=== PATIENT | male | born 1955 | race Caucasian/White ===

== ENCOUNTER → 2019-01-20 13:05 | Outpatient (CLI) | payer OTHER, SELFPAY ==
--- NOTE | 2019-01-20 13:06 | DI.US.S_ITS ---
PROCEDURE: US SCROTUM INDICATIONS: SCROTAL SWELLING TECHNIQUE: Real-time scanning was performed of the scrotum and testicles, with image documentation. Color and pulse Doppler interrogation was performed of both testicles. COMPARISON: [facility], , TESTICLE IMAGING, 01/08/2013, 16:16. FINDINGS: Right: Testicle is normal in size at 5.9 x 3.8 x 3.7 cm, and homogenous in echotexture. Large right spermatocele has increased in size measuring 10.7 x 7.8 x 10.4 cm.. No hydrocele or varicoceles. Overlying scrotal skin is normal in thickness. Left: Testicle is normal in size at 5.5 x 3.3 x 3.5 cm, and homogeneous in echotexture. Epididymis is normal in overall size and morphology. Small left epididymal cyst again seen unchanged measuring 17 mm No hydrocele or varicoceles. Overlying scrotal skin is normal in thickness. Doppler: Color and pulse Doppler demonstrate normal and symmetric arterial flow in both testicles. IMPRESSION: 1. Normal testicles bilaterally. 2. Increase in size of large right spermatocele and no change in small left epididymal cyst. Dictated by: Andre Kinsey [facility] Interpreted: Xavier Orlando MD on 01/20/2019 at 15:05 Approved by: Xavier Orlando M.D. on 01/22/2019 at 17:34
== END ==
PROVIDERS: PCP Family Medicine; Visit Provider Family Medicine
DX: N50.89 Other specified disorders of the male genital organs (principal); N43.41 Spermatocele of epididymis, single; N50.3 Cyst of epididymis
CPT/HCPCS: 76870

== ENCOUNTER 2019-04-17 20:17 | Emergency (ER) | payer OTHER, SELFPAY ==
[2019-04-17 20:25] VITALS: BP 175/112; PULSE 90; RESP 16; TEMP 36.7; O2SAT 94; BMI 33.3
--- NOTE | 2019-04-17 20:26 | ED.MALEGU ---
HPI - Male Genitourinary General Chief complaint: Urogenital-Male Stated complaint: Surgical wound opened Time Seen by Provider: 04/17/19 20:20 Source: patient and EMS Mode of arrival: EMS Limitations: no limitations History of Present Illness HPI Narrative: 64-year-old male nonsmoker with recent history of urologic surgery presents by EMS for evaluation of bleeding from the surgical site. He had surgery for a large hydrocele at [facility] earlier in the week. He had been in his normal state of health and actually saw his urologist in the office yesterday. Today he felt some liquid draining in his pants and noted that his wound had dehisced and he bled a large amount of dark blood. He denies any dizziness, weakness or lightheadedness. He has no pain, fever or shaking chills. He takes no blood thinners. MD Complaint: other Onset (ago): hour(s) Duration: constant Location: right testicle Severity: moderate Relieving factors: none Exacerbating factors: none Context: recent surgery Related Data Home Medications Medication Instructions Recorded Confirmed No Known Home Medications 01/05/19 01/05/19 Allergies Allergy/AdvReac Type Severity Reaction Status Date / Time No Known Drug Allergies Allergy Verified 01/05/19 12:53 Review of Systems Constitutional Constitutional: Denies chills, Denies fatigue, Denies fever(s), Denies frequent falls, Denies lethargy and Denies weakness Eyes Eyes: Denies change in vision, Denies eye discharge, Denies irritation and Denies loss of vision ENT Ears, Nose, Mouth, and Throat: Denies change in voice, Denies dizziness, Denies neck pain, Denies sore throat and Denies throat swelling Cardiovascular Cardiovascular: Denies chest pain, Denies irregular heart rhythm, Denies lightheadedness, Denies palpitations, Denies dyspnea, Denies dyspnea on exertion and Denies orthopnea Respiratory Respiratory: Denies cough, Denies dyspnea, Denies dyspnea on exertion and Denies wheezing Gastrointestinal Gastrointestinal: Denies abdominal pain, Denies change in bowel habits, Denies diarrhea, Denies nausea and Denies vomiting Genitourinary Genitourinary: Denies hematuria, Denies flank pain, Denies urinary incontinence and Denies urinary urgency Comments: Bleeding from surgical site Musculoskeletal Musculoskeletal: Denies back pain, Denies muscle weakness, Denies neck pain, Denies numbness and Denies tingling Integumentary/Breasts Skin/Breast: Denies pruritus, Denies erythema, Denies rash and Denies wounds Neurologic Neurologic: Denies behavioral changes, Denies confusion, Denies dizziness, Denies frequent falls, Denies loss of vision, Denies numbness, Denies tingling and Denies weakness Psychiatric Psychiatric: Denies anxiety, Denies behavioral changes, Denies confusion, Denies depression, Denies homicidal ideation and Denies suicidal ideation Endocrine Endocrine: Denies fatigue, Denies flushing and Denies palpitations Hematologic/Lymphatic Hematologic/Lymphatic: Denies easy bruising Allergic/Immunologic Allergic/Immunologic: Denies urticaria, Denies throat swelling and Denies wheezing Patient History Medical History Gout (Acute) Surgical History Anesthesia (Resolved) History of right knee surgery (Resolved ~01/2009) Family History Father Hyperlipidemia Atherosclerosis Mother Diabetes mellitus Hyperlipidemia Brother COPD (chronic obstructive pulmonary disease) Brother Liver disease Social History Smoking Status: Never smoker Smoking Status: Never smoker Exam Narrative Exam Narrative: GENERAL: [64] year old patient appears stated age. Well-nourished, well-developed patient, in mild distress. HEAD: Atraumatic. Normocephalic. EYES: Pupils equal round and reactive. Extraocular motions intact. No scleral icterus. No injection or drainage. ENT: Nose without bleeding, purulent drainage. Throat without erythema, tonsillar hypertrophy or exudate. Airway patent. NECK: Trachea midline. Non tender CARDIOVASCULAR: Regular rate and rhythm without murmurs, gallops, or rubs. RESPIRATORY: Clear to auscultation. Breath sounds equal bilaterally. No wheezes, rales, or rhonchi. GASTROINTESTINAL: Abdomen soft, non-tender, nondistended. : 2cm area of wound dehiscence. Approximately 200 cc of dark blood expressed, no sign of active or arterial bleeding EXTREMITIES: No edema or joint tenderness. BACK: Nontender without deformity or crepitance. No flank tenderness. NEURO: AOx3. SKIN: No rash or erythema of visible areas Initial Vital Signs Initial Vital Signs: Vital Signs Temperature 98.1 F 04/17/19 20:25 Pulse Rate 90 04/17/19 20:25 Respiratory Rate 16 04/17/19 20:25 Blood Pressure 175/112 H 04/17/19 20:25 Pulse Oximetry 94 04/17/19 20:25 Course Orders Ordered: ED Orders 04/17/19 20:45 Basic Metabolic Panel Stat Complete Blood Count AUTO DIFF Stat Procalcitonin Stat Prothrombin Time INR Stat Consultations Consultation #1: Call to the patient's surgeon, Dr. Quintero, we discussed the case and she states given normal vital signs and lab work as well as my description of the blood this is almost surely a delayed bleed and consequence of his surgery. They will call him and see him in office on Friday Vital Signs Vital signs: Vital Signs - 8 hr 04/17/19 20:25 Temperature 98.1 F Pulse Rate 90 Respiratory Rate 16 Blood Pressure 175/112 H Pulse Oximetry 94 MDM - Male Genitourinary Lab Data Result diagrams: 04/17/19 20:45 04/17/19 20:45 Labs: Lab Results 04/17/19 04/17/19 04/17/19 Range/Units 20:45 20:45 20:45 WBC 7.7 (4.5-11.0) X10^3/uL RBC 5.08 (4.5-5.9) X10^6/uL Hgb 16.1 (13.5-17.5) g/dL Hct 47.4 (41-53) % MCV 93.2 (80-100) fL MCH 31.6 (26-34) PG MCHC 33.9 (30-36) % RDW 13.9 (11.6-14.8) % Plt Count 264 (150-400) X10^3/uL Neut % (Auto) 56.3 (50-75) % Lymph % (Auto) 32.1 (25-40) % Mason % (Auto) 8.2 (3-14) % Eos % (Auto) 2.4 (2-4) % Baso % (Auto) 1.0 (0-2) % Neut # (Auto) 4300 (0553-1774) /uL Lymph # (Auto) 2500 (7094-7150) /uL Mason # (Auto) 600 (0-900) /uL Eos # (Auto) 200 (0-450) /uL Baso # (Auto) 100 (0-100) /uL PT 12.8 H (10.1-12.7) SECONDS INR 1.1 (0.9-1.3) Sodium (137-145) mmol/L Potassium (3.4-5.1) mmol/L Chloride (98-107) mmol/L Carbon Dioxide (22-32) mmol/L BUN (9-20) mg/dL Creatinine (0.66-1.25) mg/dL Estimated GFR (>60) mL/min BUN/Creatinine Ratio (6-22) Glucose (80-110) mg/dL Calcium (8.4-10.2) mg/dL Procalcitonin < 0.05 (<0.5) ng/mL 04/17/19 Range/Units 20:45 WBC (4.5-11.0) X10^3/uL RBC (4.5-5.9) X10^6/uL Hgb (13.5-17.5) g/dL Hct (41-53) % MCV (80-100) fL MCH (26-34) PG MCHC (30-36) % RDW (11.6-14.8) % Plt Count (150-400) X10^3/uL Neut % (Auto) (50-75) % Lymph % (Auto) (25-40) % Mason % (Auto) (3-14) % Eos % (Auto) (2-4) % Baso % (Auto) (0-2) % Neut # (Auto) (8943-7992) /uL Lymph # (Auto) (6515-2634) /uL Mason # (Auto) (0-900) /uL Eos # (Auto) (0-450) /uL Baso # (Auto) (0-100) /uL PT (10.1-12.7) SECONDS INR (0.9-1.3) Sodium 141 (137-145) mmol/L Potassium 4.1 (3.4-5.1) mmol/L Chloride 106 (98-107) mmol/L Carbon Dioxide 24 (22-32) mmol/L BUN 20 (9-20) mg/dL Creatinine 1.10 (0.66-1.25) mg/dL Estimated GFR > 60.0 (>60) mL/min BUN/Creatinine Ratio 18.2 (6-22) Glucose 103 (80-110) mg/dL Calcium 9.7 (8.4-10.2) mg/dL Procalcitonin (<0.5) ng/mL Discharge Plan Departure Patient Disposition: Home Clinical Impression: Accidental laceration or bleeding during surgery, No known health problems Discharge Date/Time: 04/17/19 23:02 Activity Restrictions/Additional Instructions: *You have been diagnosed with [surgical wound bleeding] *What to do: * continue to take medications as directed *I have spoken with Dr. Quintero and her office will call you and arrange to see you on Friday. *Return to ER if you should have any new, worsening or concerning symptoms Prescriptions: No Action No Known Home Medications RF: 0 Referrals: Diana Quintero MD [Non-Staff] - Karan Smith DO [Primary Care Provider] -
[2019-04-17 20:52] LABS: Add Manual Diff / Slide Review NO; Basophils Absolute Auto 100 /uL (0-100); Eosinophils Absolute Auto 200 /uL (0-450); Eosinophils Percent Auto 2.4 % (2-4); Hematocrit 47.4 % (41-53); Hemoglobin 16.1 g/dL (13.5-17.5); Lymphocytes Absolute Auto 2500 /uL (1100-4500); Lymphocytes Percent Auto 32.1 % (25-40); Mean Corpuscular HGB Conc 33.9 % (30-36); Mean Corpuscular Hemoglobin 31.6 PG (26-34); Mean Corpuscular Volume 93.2 fL (80-100); Monocytes Absolute Auto 600 /uL (0-900); Monocytes Percent Auto 8.2 % (3-14); Neutrophils Absolute Auto 4300 /uL (1500-7000); Neutrophils Percent Auto 56.3 % (50-75); Platelet Count 264 X10^3/uL (150-400); Red Blood Cell Count 5.08 X10^6/uL (4.5-5.9); Red Cell Distribution Width 13.9 % (11.6-14.8); White Blood Cell Count 7.7 X10^3/uL (4.5-11.0)
[2019-04-17 20:57] LABS: INR 1.1 (0.9-1.3); Prothrombin Time 12.8 SECONDS (10.1-12.7)
[2019-04-17 21:01] LABS: BUN Creatinine Ratio 18.2 (6-22); Blood Urea Nitrogen 20 mg/dL (9-20); Calcium 9.7 mg/dL (8.4-10.2); Carbon Dioxide 24 mmol/L (22-32); Chloride 106 mmol/L (98-107); Estimated Glomerular Filt Rate > 60.0 mL/min (>60); Glucose 103 mg/dL (80-110); HEMOLYSIS 24 (0-50); Potassium 4.1 mmol/L (3.4-5.1); Sodium 141 mmol/L (137-145)
[2019-04-17 21:29] LABS: Procalcitonin < 0.05 ng/mL (<0.5)
[2019-04-17 22:38] VITALS: BP 167/102; PULSE 82; O2SAT 94
--- NOTE | 2019-04-17 22:58 | PC.NURSE ---
dehissed surgical scrotum. provider reports 200cc blood output upon manipulation. Patient had fluid asperated from his testicles on the fourth. Today he went to the restroom and the gauze he keeps in his jock strap pulled the surgical site open. denies pain.
== END 2019-04-17 23:02 | disposition home or self-care (01) ==
PROVIDERS: Emergency Provider Emergency Medicine; PCP Family Medicine
DX: Z98.890 Other specified postprocedural states (principal)
CPT/HCPCS: 36415; 80048; 84145; 85025; 85610; 99283; 99284

== ENCOUNTER 2021-05-22 21:12 | Inpatient (IN) | payer OTHER, MEDICARE, SELFPAY ==
[2021-05-22] VITALS (9 sets, daily range): BP systolic 120–159; BP diastolic 67–98; PULSE 52–77; RESP 19–55; TEMP 36.4; O2SAT 85–95; BMI 32.5
--- NOTE | 2021-05-22 21:17 | DI.RAD.S_ITS ---
PROCEDURE: XR ABDOMEN MIN 2V INDICATIONS: severe abdominal pain TECHNIQUE: 2 views of the abdomen were acquired. COMPARISON: None. FINDINGS: Surgical changes and devices: None. Bowel: No pneumoperitoneum. The bowel gas pattern is nonspecific with a paucity of intraluminal small bowel gas. Soft tissues: No suspicious abdominal calcifications. Bones: No suspicious bony abnormalities. IMPRESSION: 1. Nonspecific bowel gas pattern with a paucity of intraluminal small bowel gas. If clinical concern persists, further evaluation may be obtained with CT. Dictated by: Mart Pena M.D. on 05/22/2021 at 22:11 Approved by: Mart Pena M.D. on 05/22/2021 at 22:13
--- NOTE | 2021-05-22 21:22 | ED.ABDPAIN ---
HPI - Abdominal Pain General Chief Complaint: Abdominal Pain Stated Complaint: severe abd pain Time Seen by Provider: 05/22/21 21:16 History of Present Illness HPI narrative: 66-year-old male nonsmoker with history of alcohol abuse is otherwise relatively healthy and presents with his with a chief complaint of gradually worsening generalized abdominal pain over the course of the day. It has become significant and absent of any obvious provocation or palliation. He has had at least 6 episodes of emesis without any impact on his discomfort. He has had no change in diet or bowel habits. He states that he always frequently urinates but it is no different today. He has had no fever or chills. His pain is intense, 10/10. He denies dizziness, weakness or lightheadedness. He has no chest pain or shortness of breath. He denies any history of the same Related Data Home Medications Medication Instructions Recorded Confirmed No Known Home Medications 01/05/19 01/05/19 Allergies Allergy/AdvReac Type Severity Reaction Status Date / Time No Known Drug Allergies Allergy Verified 05/22/21 21:26 Review of Systems Review of Systems Narrative: GENERAL: Denies chills, fatigue, malaise, fever, sweats. HEENT: Denies sinus pain, ear pain, sore throat, difficulty swallowing, dizziness. RESPIRATORY: Denies dyspnea, cough, wheezing, hemoptysis, sputum. CARDIOVASCULAR: Denies chest pain, palpitations, orthopnea, edema, GASTROINTESTINAL: See HPI : Denies dysuria, frequency, incontinence, hematuria, urinary retention. MUSCULOSKELETAL: denies weakness, joint pain, or bony pain SKIN: See HP NEUROLOGIC: Denies weakness, headache, numbness, change in speech, confusion, seizures, incoordination. PSYCHIATRIC: No concerning psychosocial issues. 12 point review of systems is negative except for those stated above Patient History Medical History (Updated 05/23/21 @ 00:56 by Thierry Crain DO) Gout Surgical History Anesthesia History of right knee surgery (~01/2009) Family History Father Hyperlipidemia Atherosclerosis Mother Diabetes mellitus Hyperlipidemia Brother COPD (chronic obstructive pulmonary disease) Brother Liver disease Social History household members: spouse Smoking Status: Never smoker Smoking Status: Never smoker alcohol intake frequency: 0-2 drinks per day Alcohol type: wine Substance Use Type: does not use Exam Narrative Exam Narrative: GENERAL: [66] year old patient appears stated age. Well-developed patient, in obvious distress, writhing in pain, diaphoretic HEAD: Atraumatic. Normocephalic. EYES: Pupils equal round and reactive. Extraocular motions intact. No scleral icterus. No injection or drainage. ENT: Nose without bleeding, purulent drainage. Throat without erythema, tonsillar hypertrophy or exudate. Airway patent. NECK: Trachea midline. Non tender CARDIOVASCULAR: Regular rate and rhythm without murmurs, gallops, or rubs. RESPIRATORY: Clear to auscultation. Breath sounds equal bilaterally. No wheezes, rales, or rhonchi. GASTROINTESTINAL: Abdomen soft, tender throughout, particularly in the epigastrium, nondistended. EXTREMITIES: No edema or joint tenderness. BACK: Nontender without deformity or crepitance. No flank tenderness. NEURO: AOx3. SKIN: No rash or erythema of visible areas, diaphoretic Initial Vital Signs Initial Vital Signs: Vital Signs Pulse Rate 54 L 05/22/21 21:14 Respiratory Rate 24 05/22/21 21:14 Blood Pressure 120/67 05/22/21 21:14 Pulse Oximetry 95 05/22/21 21:14 Course Orders Ordered: ED Orders 05/22/21 21:17 XR abdomen min 2V Stat EKG-12 Lead Stat 05/22/21 21:20 Complete Blood Count AUTO DIFF Stat Comprehensive Metabolic Panel Stat D Dimer Stat Lactate (Lactic Acid) Stat Lipase Stat Troponin & CK Cardiac Panel Stat 05/22/21 21:30 COVID19 -Nasal swab/Pre-Proc Stat 05/22/21 21:45 Blood Culture Stat 05/22/21 22:16 CT angio chest abdomen pelvis Stat 05/23/21 00:02 Urine Culture Stat Urine Microscopic Stat Dextrose (Dextrose 50 % In Water 25 Gm/50 Ml Syringe) 25 gm IV PRN PRN PRN Reason: Hypoglycemia Enoxaparin Sodium (Enoxaparin 40 Mg/0.4 Ml Syringe) 40 mg SUBCUT DAILY CARMEN Fentanyl (Fentanyl 100 Mcg/2 Ml Inj) 50 mcg IV Q1H PRN PRN Reason: Pain, Severe (7-10) Last Admin: 05/22/21 22:24 Dose: 50 mcg Documented by: ALFREDO Hydromorphone HCl (Hydromorphone 1 Mg Inj) 1 mg IV Q3H PRN PRN Reason: Pain, Severe (7-10) Last Admin: 05/23/21 02:37 Dose: 1 mg Documented by: EBONI Sodium Chloride (Normal Saline 0.9%) 1,000 mls @ 150 mls/hr IV CONT CARMEN Last Infusion: 05/22/21 22:25 Dose: 0 mls/hr Documented by: Admin: 05/22/21 21:35 Dose: 150 mls/hr Documented by: ALFREDO Insulin Human Lispro (Insulin Lispro 100 Unit/Ml 3ml Vial) 0 unit SUBCUT ACHS [facility]; Protocol Metoclopramide HCl (Metoclopramide 10 Mg/2 Ml Inj) 10 mg IV Q6HR PRN PRN Reason: Nausea And Vomiting Naloxone HCl (Naloxone 0.4 Mg/Ml Vial) 0.2 mg IV Q2MIN PRN PRN Reason: Opiate Reversal Ondansetron HCl (Ondansetron 4 Mg/2 Ml Inj) 4 mg IV Q6HR PRN PRN Reason: Nausea And Vomiting Last Admin: 05/23/21 02:31 Dose: 4 mg Documented by: EBONI Discontinued Medications Enoxaparin Sodium (Enoxaparin 40 Mg/0.4 Ml Syringe) 40 mg SUBCUT DAILY [facility] Hydromorphone HCl (Hydromorphone 0.5 Mg Inj) 0.5 mg IV NOW ONE Stop: 05/22/21 21:18 Last Admin: 05/22/21 21:35 Dose: 0.5 mg Documented by: ALFREDO Hydromorphone HCl (Hydromorphone 0.5 Mg Inj) 0.25 mg IV NOW ONE Stop: 05/22/21 22:31 Last Admin: 05/22/21 22:30 Dose: 0.25 mg Documented by: ALFREDO Hydromorphone HCl (Hydromorphone 0.5 Mg Inj) 0.5 mg IV NOW ONE Stop: 05/23/21 00:53 Last Admin: 05/23/21 01:01 Dose: 0.5 mg Documented by: ALFREDO Hydromorphone HCl (Hydromorphone 0.5 Mg Inj) 1 mg IV Q3H PRN PRN Reason: Pain, Severe (7-10) Hydromorphone HCl (Hydromorphone 1 Mg Inj) 1 mg IV Q3H PRN PRN Reason: Pain, Severe (7-10) Sodium Chloride (Normal Saline 0.9%) 2,466 mls @ 822 mls/hr 30 ml/kg infuse over 3 hr (2466 ml) IV NOW ONE Stop: 05/23/21 01:14 Last Infusion: 05/23/21 01:17 Dose: 822 mls/hr Documented by: Admin: 05/22/21 22:25 Dose: 822 mls/hr Documented by: ALFREDO Piperacillin Sod/Tazobactam (Sod 4.5 gm/ Sodium Chloride) 100 mls @ 200 mls/hr IV NOW ONE Stop: 05/22/21 22:16 Last Infusion: 05/22/21 23:45 Dose: 0 mls/hr Documented by: Admin: 05/22/21 23:26 Dose: 200 mls/hr Documented by: ALFREDO Ondansetron HCl (Ondansetron 4 Mg/2 Ml Inj) 4 mg IV NOW ONE Stop: 05/22/21 21:18 Last Admin: 05/22/21 21:35 Dose: 4 mg Documented by: ALFREDO Vital Signs Vital signs: Vital Signs - 8 hr 05/22/21 21:14 05/22/21 21:27 05/22/21 21:28 Temperature Pulse Rate 54 L 71 Respiratory Rate 24 Blood Pressure 120/67 Pulse Oximetry 95 85 L 88 L 05/22/21 21:31 05/22/21 21:34 05/22/21 22:00 Temperature 97.6 F Pulse Rate 52 L 72 Respiratory Rate 29 H 55 H Blood Pressure 147/88 H 157/92 H Pulse Oximetry 93 05/22/21 22:30 05/22/21 23:00 05/22/21 23:30 Temperature Pulse Rate 68 67 77 Respiratory Rate 19 43 H Blood Pressure 159/98 H Pulse Oximetry 94 93 90 L 05/23/21 00:00 05/23/21 00:30 Temperature Pulse Rate 69 74 Respiratory Rate 25 H 25 H Blood Pressure Pulse Oximetry 84 L 88 L MDM - Abdominal Pain Lab Data Result diagrams: 05/22/21 21:20 05/22/21 21:20 Labs: Lab Results 05/22/21 05/22/21 05/22/21 Range/Units 21:14 21:14 21:20 WBC 11.0 (4.5-11.0) X10^3/uL RBC 4.99 (4.5-5.9) X10^6/uL Hgb 15.2 (13.5-17.5) g/dL Hct 44.9 (41-53) % MCV 89.9 (80-100) fL MCH 30.4 (26-34) PG MCHC 33.8 (30-36) % RDW 14.6 (11.6-14.8) % Plt Count 261 (150-400) X10^3/uL Neut % (Auto) 67.7 (50-75) % Lymph % (Auto) 21.4 L (25-40) % [place] % (Auto) 9.7 (3-14) % Eos % (Auto) 0.5 L (2-4) % Baso % (Auto) 0.7 (0-2) % Neut # (Auto) 7500 H (3840-0750) /uL Lymph # (Auto) 2400 (2383-1396) /uL [place] # (Auto) 1100 H (0-900) /uL Eos # (Auto) 100 (0-450) /uL Baso # (Auto) 100 (0-100) /uL D-Dimer (<230) ng/mL Sodium (137-145) mmol/L Potassium (3.4-5.1) mmol/L Chloride (98-107) mmol/L Carbon Dioxide (22-32) mmol/L BUN (9-20) mg/dL Creatinine (0.66-1.25) mg/dL Estimated GFR (>60) mL/min BUN/Creatinine Ratio (6-22) Glucose (80-110) mg/dL Hemoglobin A1c 5.7 (4.0-6.0) % Lactate (0.7-2.1) mmol/L Calcium (8.4-10.2) mg/dL Total Bilirubin (0.2-1.3) mg/dL AST (17-59) IU/L ALT (<50) IU/L Alkaline Phosphatase (38-126) U/L Total Creatine Kinase (55-170) U/L CK-MB (CK-2) (<2.37) ng/mL CK-MB (CK-2) Rel Index (1.5-5.0) % Troponin I (0.01-0.034) ng/mL Total Protein (6.3-8.2) g/dL Albumin (3.5-5.0) g/dL Globulin (1.7-4.1) g/dL Albumin/Globulin Ratio (1.0-2.8) Triglycerides 168 H (35-150) mg/dL Lipase (23-300) U/L Urine RBC (0-5/HPF) Urine WBC (0-5/HPF) Urine Bacteria (None) Ur Culture Indicated? SARS-CoV-2 (PCR) (Negative) 05/22/21 05/22/21 05/22/21 Range/Units 21:20 21:20 21:20 WBC (4.5-11.0) X10^3/uL RBC (4.5-5.9) X10^6/uL Hgb (13.5-17.5) g/dL Hct (41-53) % MCV (80-100) fL MCH (26-34) PG MCHC (30-36) % RDW (11.6-14.8) % Plt Count (150-400) X10^3/uL Neut % (Auto) (50-75) % Lymph % (Auto) (25-40) % [place] % (Auto) (3-14) % Eos % (Auto) (2-4) % Baso % (Auto) (0-2) % Neut # (Auto) (5682-7006) /uL Lymph # (Auto) (9055-9257) /uL [place] # (Auto) (0-900) /uL Eos # (Auto) (0-450) /uL Baso # (Auto) (0-100) /uL D-Dimer 301 H (<230) ng/mL Sodium 139 (137-145) mmol/L Potassium 3.4 (3.4-5.1) mmol/L Chloride 105 (98-107) mmol/L Carbon Dioxide 25 (22-32) mmol/L BUN 14 (9-20) mg/dL Creatinine 1.08 (0.66-1.25) mg/dL Estimated GFR > 60.0 (>60) mL/min BUN/Creatinine Ratio 13.0 (6-22) Glucose 200 H (80-110) mg/dL Hemoglobin A1c (4.0-6.0) % Lactate 3.3 H (0.7-2.1) mmol/L Calcium 9.3 (8.4-10.2) mg/dL Total Bilirubin 1.2 (0.2-1.3) mg/dL AST 181 H (17-59) IU/L ALT 110 H (<50) IU/L Alkaline Phosphatase 66 (38-126) U/L Total Creatine Kinase 361 H (55-170) U/L CK-MB (CK-2) 3.53 H (<2.37) ng/mL CK-MB (CK-2) Rel Index 1.0 L (1.5-5.0) % Troponin I < 0.012 (0.01-0.034) ng/mL Total Protein 7.5 (6.3-8.2) g/dL Albumin 4.3 (3.5-5.0) g/dL Globulin 3.2 (1.7-4.1) g/dL Albumin/Globulin Ratio 1.3 (1.0-2.8) Triglycerides (35-150) mg/dL Lipase 15552 H (23-300) U/L Urine RBC (0-5/HPF) Urine WBC (0-5/HPF) Urine Bacteria (None) Ur Culture Indicated? SARS-CoV-2 (PCR) (Negative) 05/22/21 05/22/21 05/22/21 Range/Units 21:30 23:35 23:35 WBC (4.5-11.0) X10^3/uL RBC (4.5-5.9) X10^6/uL Hgb (13.5-17.5) g/dL Hct (41-53) % MCV (80-100) fL MCH (26-34) PG MCHC (30-36) % RDW (11.6-14.8) % Plt Count (150-400) X10^3/uL Neut % (Auto) (50-75) % Lymph % (Auto) (25-40) % [place] % (Auto) (3-14) % Eos % (Auto) (2-4) % Baso % (Auto) (0-2) % Neut # (Auto) (9250-1407) /uL Lymph # (Auto) (5942-8077) /uL [place] # (Auto) (0-900) /uL Eos # (Auto) (0-450) /uL Baso # (Auto) (0-100) /uL D-Dimer (<230) ng/mL Sodium (137-145) mmol/L Potassium (3.4-5.1) mmol/L Chloride (98-107) mmol/L Carbon Dioxide (22-32) mmol/L BUN (9-20) mg/dL Creatinine (0.66-1.25) mg/dL Estimated GFR (>60) mL/min BUN/Creatinine Ratio (6-22) Glucose (80-110) mg/dL Hemoglobin A1c (4.0-6.0) % Lactate 3.8 H (0.7-2.1) mmol/L Calcium (8.4-10.2) mg/dL Total Bilirubin (0.2-1.3) mg/dL AST (17-59) IU/L ALT (<50) IU/L Alkaline Phosphatase (38-126) U/L Total Creatine Kinase (55-170) U/L CK-MB (CK-2) (<2.37) ng/mL CK-MB (CK-2) Rel Index (1.5-5.0) % Troponin I (0.01-0.034) ng/mL Total Protein (6.3-8.2) g/dL Albumin (3.5-5.0) g/dL Globulin (1.7-4.1) g/dL Albumin/Globulin Ratio (1.0-2.8) Triglycerides (35-150) mg/dL Lipase (23-300) U/L Urine RBC 1-5/hpf (0-5/HPF) Urine WBC None seen (0-5/HPF) Urine Bacteria None seen (None) Ur Culture Indicated? Culture not indicate SARS-CoV-2 (PCR) Negative (Negative) Point of care testing: Urine Dip Bedside Urine Glucose Negative Bedside Urine Bilirubin - Negative Bedside Urine Ketone +/- 5 Urine Specific [place] 1.010 Bedside Urine Occult Blood +++ Bedside Urine pH 6.0 Bedside Urine Protein - Negative Bedside Urine Urobilinogen - Negative Bedside Urine Nitrite - Negative Imaging Data CT scan - abdomen/pelvis: Radiologist's Impression: Chart Viewer Diagnostics Subcategory All Activity ??:?? All Time ??:?? All Subcategories Filter Laboratory Imaging Microbiology Pathology Blood Bank Tests Cardiovascular Other Specialty DATE TYPE STATUS REF RANGE/AUTHOR Hx 05/22/21 22:16 Chest/Abdomen/Pelvis CTA Signed Mart Pena 05/22/21 21:17 Abdomen X-Ray Signed Mart Pena 01/20/19 13:06 Scrotum Ultrasound Signed Xavier Orlando 04/18/17 10:36 Radiology - Historical ? Vinh Desai ED 66, M?1955 MRN#? [id number] ADM IN,?AC??214?-1? 187.96cm 115.212kg BMI: 32.6kg/m? Acc#? [id number] Full Code Special Indicators No Data to Display Home Meds Not Confirmed Prescription Monitoring Program MEDICATIONS (INSTRUCTIONS) LAST TAKEN Active ??No Known Home Medications Allergies No Known Drug Allergies Problems ? ONSET Acute pancreatitis Chest pain No known health problems 02/08/11 Vital Signs Today 01:25 BP 152/90?H Pulse 59?L Resp 17? Temp 96.4 F?L O2 Sat 92? Diagnostics Reports Vinh Desai??66??M??1955 ? Allergy/Adv: No Known Drug Allergies (More??) Close Chest/Abdomen/Pelvis CTA (Signed) Mart Pena - 05/22/21 Abdomen X-Ray (Signed) Mart Pena - 05/22/21 Scrotum Ultrasound (Signed) Xavier Orlando - 01/20/19 Radiology - Historical 04/18/17 Launch?[place] [address] CT Scan Report Signed Patient: Vinh Desai MR#: [id number] : 1955 Acct:[id number] Age/Sex: 66 / M Date of Service: 05/22/21 Loc: ED Accession Number: [id number] ?? Procedure: CT angio chest abdomen pelvis Ordering Provider: Thierry Crain D.O. PROCEDURE:? CT ANGIO CHEST ABDOMEN PELVIS ? INDICATIONS:? severe pain, out of proportion, elevated lactate, ischemic? ? TECHNIQUE:? Precontrast 5 mm thick sections acquired from the lung apices to the iliac crests.? After the administration of intravenous contrast, 2.5 mm thick sections again acquired from the lung apices to the iliac crests.? Maximum intensity projection (MIP) oblique sagittal and coronal reformats were then acquired.? For radiation dose reduction, the following was used:? automated exposure control.? ? COMPARISON:? None. ? FINDINGS:? Image quality:? Diagnostic.? ? AORTA:? Noncontrast images demonstrate no evidence of intramural hematoma.? There is aneurysmal dilatation of the aortic root which measures up to approximately 4.7 cm.? The sino-tubular junction is normal, measuring up to 3.7 cm. The aorta is otherwise normal in caliber and contour.? No intimal flaps are identified to suggest aortic dissection.? ? There is conventional branching of the aortic arch.? The visualized great vessels appear patent.? The celiac, superior mesenteric, and inferior mesenteric arteries appear widely patent.? There are single renal arteries bilaterally.? There is mild calcified plaque with associated mild narrowing at the origin of the left renal artery.? The common, external, and internal iliac arteries appear widely patent.? The visualized common femoral and proximal superficial femoral arteries also appear patent. ? CHEST:? Lungs and pleura:? There is mild dependent atelectasis bilaterally.? No pleural effusions or pneumothorax.? There is a small amount of dependent mucus within the trachea.? There is elevation of the right hemidiaphragm ? Mediastinum:? Heart size is normal.? No pericardial effusion.? No mediastinal or hilar adenopathy by size criteria.? Central pulmonary arteries are normal in size.? Esophagus is normal in caliber.? No hiatal hernias.? ? Bones and chest wall:? No axillary adenopathy by size criteria.? Thyroid gland demonstrates no discrete nodules.? No suspicious bony lesions.? No vertebral body compression fractures.? ? ? ABDOMEN:? ? Solid organs:? There are few cysts in the left hepatic lobe.? The gallbladder appears within normal limits without calcified gallstones.? Biliary system is non-dilated.? The spleen is normal in size.? No adrenal nodules.? Kidneys demonstrate no hydronephrosis. ? There is peripancreatic fat stranding and fluid predominantly along the pancreatic head consistent acute pancreatitis.? No acute peripancreatic fluid collections.? No definite evidence of necrosis.? No discrete pancreatic mass.? No pancreatic duct dilatation. ? Peritoneum and bowel:? There is mild segmental bowel wall thickening involving the 2nd and 3rd portion of the duodenum likely representing reactive changes secondary to pancreatitis.? Small and large bowel loops otherwise appear normal in caliber and wall thickness.? No pericecal inflammatory changes to suggest appendicitis.? There is colonic diverticulosis throughout the colon without acute diverticulitis. ? Nodes and vessels:? No retroperitoneal or mesenteric adenopathy by size criteria.? Inferior vena cava is normal in morphology.? ? Miscellaneous:? No ventral hernias.? ? ? PELVIS:? Genitourinary:? Bladder wall thickness is normal.? ? Miscellaneous:? No inguinal hernias or adenopathy.? No ventral hernias.? ? Bones:? No suspicious bony lesions.? No vertebral body compression fractures.? ? ? IMPRESSION:? ? 1. No evidence of aortic dissection. ? 2. No focal stenosis within the celiac, superior mesenteric, or inferior mesenteric arteries to suggest mesenteric ischemia. ? 3. Peripancreatic fat stranding and fluid consistent with acute interstitial edematous pancreatitis.? No evidence of necrosis or loculated acute peripancreatic fluid collections. ? 4. Mild aneurysmal dilatation of the aortic root. ? ? Dictated by: Mart Pena M.D. on 05/22/2021 at 23:41 ? ? Approved by: Mart Pena M.D. on 05/22/2021 at 23:49 ? [facility] Narrative Medical decision making narrative: Patient presents with a relatively sudden onset severe abdominal pain which at times seems out of proportion to his exam. Given the severity of his initial presentation he was treated as if he may be septic from perforation or other intra-abdominal infection hence the decision to use IV fluids at 30 cc/kilogram and administration of antibiotics. Given the severity of his presentation vascular abnormalities of the abdomen were considered and thankfully not seen on angiography, however is significantly elevated lipase and imaging suggest pancreatitis as etiology. There is no fluid collection or abscess nor evidence of necrotizing pancreatitis. Pain is well controlled. Patient and understand the diagnosis and agree with the plan. Discharge Plan Departure Patient Disposition: Admitted As Inpatient Clinical Impression: Acute pancreatitis Admit Date/Time: 05/23/21 00:55 Admit Provider: Beth Orlando
[2021-05-22] MEDS: ONDANSETRON 4 MG/2 ML INJ IV (21:35)
[2021-05-22] MEDS: SODIUM CHLORIDE 0.9% 1,000 ML 150 ML IV (21:35)
[2021-05-22] MEDS: HYDROMORPHONE 0.5 MG INJ IV (21:35)
[2021-05-22 21:36] LABS: Add Manual Diff / Slide Review NO; Basophils Absolute Auto 100 /uL (0-100); Basophils Percent Auto 0.7 % (0-2); Eosinophils Absolute Auto 100 /uL (0-450); Eosinophils Percent Auto 0.5 % (2-4); Hematocrit 44.9 % (41-53); Hemoglobin 15.2 g/dL (13.5-17.5); Lymphocytes Absolute Auto 2400 /uL (1100-4500); Lymphocytes Percent Auto 21.4 % (25-40); Mean Corpuscular HGB Conc 33.8 % (30-36); Mean Corpuscular Hemoglobin 30.4 PG (26-34); Mean Corpuscular Volume 89.9 fL (80-100); Monocytes Absolute Auto 1100 /uL (0-900); Monocytes Percent Auto 9.7 % (3-14); Neutrophils Absolute Auto 7500 /uL (1500-7000); Neutrophils Percent Auto 67.7 % (50-75); Platelet Count 261 X10^3/uL (150-400); Red Blood Cell Count 4.99 X10^6/uL (4.5-5.9); Red Cell Distribution Width 14.6 % (11.6-14.8)
[2021-05-22 21:45] LABS: D Dimer 301 ng/mL (<230)
[2021-05-22 21:47] LABS: Alanine Aminotransferase 110 IU/L (<50); Albumin 4.3 g/dL (3.5-5.0); Albumin Globulin Ratio 1.3 (1.0-2.8); Alkaline Phosphatase 66 U/L (38-126); Aspartate Aminotransferase 181 IU/L (17-59); Bilirubin Total 1.2 mg/dL (0.2-1.3); Blood Urea Nitrogen 14 mg/dL (9-20); Calcium 9.3 mg/dL (8.4-10.2); Carbon Dioxide 25 mmol/L (22-32); Chloride 105 mmol/L (98-107); Creatine Kinase 361 U/L (55-170); Estimated Glomerular Filt Rate > 60.0 mL/min (>60); Globulin 3.2 g/dL (1.7-4.1); Glucose 200 mg/dL (80-110); HEMOLYSIS < 15 (0-50); Lactate (Lactic Acid) 3.3 mmol/L (0.7-2.1); Potassium 3.4 mmol/L (3.4-5.1); Sodium 139 mmol/L (137-145); Total Protein 7.5 g/dL (6.3-8.2)
[2021-05-22 21:53] LABS: COVID19 -Nasal RAPID Negative (Negative)
[2021-05-22 21:58] LABS: Troponin I < 0.012 ng/mL (0.01-0.034)
[2021-05-22 22:02] LABS: Creatine Kinase MB 3.53 ng/mL (<2.37)
--- NOTE | 2021-05-22 22:16 | DI.CT.S_ITS ---
PROCEDURE: CT ANGIO CHEST ABDOMEN PELVIS INDICATIONS: severe pain, out of proportion, elevated lactate, ischemic? TECHNIQUE: Precontrast 5 mm thick sections acquired from the lung apices to the iliac crests. After the administration of intravenous contrast, 2.5 mm thick sections again acquired from the lung apices to the iliac crests. Maximum intensity projection (MIP) oblique sagittal and coronal reformats were then acquired. For radiation dose reduction, the following was used: automated exposure control. COMPARISON: None. FINDINGS: Image quality: Diagnostic. AORTA: Noncontrast images demonstrate no evidence of intramural hematoma. There is aneurysmal dilatation of the aortic root which measures up to approximately 4.7 cm. The sino-tubular junction is normal, measuring up to 3.7 cm. The aorta is otherwise normal in caliber and contour. No intimal flaps are identified to suggest aortic dissection. There is conventional branching of the aortic arch. The visualized great vessels appear patent. The celiac, superior mesenteric, and inferior mesenteric arteries appear widely patent. There are single renal arteries bilaterally. There is mild calcified plaque with associated mild narrowing at the origin of the left renal artery. The common, external, and internal iliac arteries appear widely patent. The visualized common femoral and proximal superficial femoral arteries also appear patent. CHEST: Lungs and pleura: There is mild dependent atelectasis bilaterally. No pleural effusions or pneumothorax. There is a small amount of dependent mucus within the trachea. There is elevation of the right hemidiaphragm Mediastinum: Heart size is normal. No pericardial effusion. No mediastinal or hilar adenopathy by size criteria. Central pulmonary arteries are normal in size. Esophagus is normal in caliber. No hiatal hernias. Bones and chest wall: No axillary adenopathy by size criteria. Thyroid gland demonstrates no discrete nodules. No suspicious bony lesions. No vertebral body compression fractures. ABDOMEN: Solid organs: There are few cysts in the left hepatic lobe. The gallbladder appears within normal limits without calcified gallstones. Biliary system is non-dilated. The spleen is normal in size. No adrenal nodules. Kidneys demonstrate no hydronephrosis. There is peripancreatic fat stranding and fluid predominantly along the pancreatic head consistent acute pancreatitis. No acute peripancreatic fluid collections. No definite evidence of necrosis. No discrete pancreatic mass. No pancreatic duct dilatation. Peritoneum and bowel: There is mild segmental bowel wall thickening involving the 2nd and 3rd portion of the duodenum likely representing reactive changes secondary to pancreatitis. Small and large bowel loops otherwise appear normal in caliber and wall thickness. No pericecal inflammatory changes to suggest appendicitis. There is colonic diverticulosis throughout the colon without acute diverticulitis. Nodes and vessels: No retroperitoneal or mesenteric adenopathy by size criteria. Inferior vena cava is normal in morphology. Miscellaneous: No ventral hernias. PELVIS: Genitourinary: Bladder wall thickness is normal. Miscellaneous: No inguinal hernias or adenopathy. No ventral hernias. Bones: No suspicious bony lesions. No vertebral body compression fractures. IMPRESSION: 1. No evidence of aortic dissection. 2. No focal stenosis within the celiac, superior mesenteric, or inferior mesenteric arteries to suggest mesenteric ischemia. 3. Peripancreatic fat stranding and fluid consistent with acute interstitial edematous pancreatitis. No evidence of necrosis or loculated acute peripancreatic fluid collections. 4. Mild aneurysmal dilatation of the aortic root. Dictated by: Mart Pena M.D. on 05/22/2021 at 23:41 Approved by: Mart Pena M.D. on 05/22/2021 at 23:49
[2021-05-22] MEDS: fentaNYL 100 MCG/2 ML INJ 50 MCG IV (22:24)
[2021-05-22] MEDS: SODIUM CHLORIDE 0.9% 2,466 ML 822 ML IV (22:25)
[2021-05-22] MEDS: HYDROMORPHONE 0.5 MG INJ 0.25 MG IV (22:30)
[2021-05-22 22:36] LABS: Lipase 51929 U/L (23-300)
[2021-05-22] MEDS: PIPERACILLIN/TAZO 4.5 GM in SODIUM CHLORIDE 0.9% 100 ML 200 ML IV (23:26)
[2021-05-22 23:29] LABS: Reflexed Lactate in 2 Hours Y
[2021-05-22] MEDS: KETAMINE 50 MG/5 ML *SYRINGE 11.5212 MG IV (23:35)
[2021-05-23] VITALS (11 sets, daily range): BP systolic 130–152; BP diastolic 75–90; PULSE 59–79; RESP 17–34; TEMP 35.6–36.7; O2SAT 84–97; BMI 32.5
[2021-05-23] LABS: Lactate 2HR (Lactic Acid Rflx) 3.8 mmol/L (0.7-2.1)
[2021-05-23 00:25] LABS: Bacteria Urine None Seen; RBC Urine 1-5/HPF (0-5/HPF); WBC Urine None Seen (0-5/HPF)
[2021-05-23] MEDS: HYDROMORPHONE 0.5 MG INJ IV (01:01)
[2021-05-23 02:01] LABS: Triglycerides 168 mg/dL (35-150)
[2021-05-23 02:15] LABS: Hemoglobin A1C% w Est Avg Glu 5.7 % (4.0-6.0)
[2021-05-23] MEDS: ONDANSETRON 4 MG/2 ML INJ IV (02:31)
[2021-05-23] MEDS: HYDROMORPHONE 1 MG INJ IV ×2 (02:37→06:27)
--- NOTE | 2021-05-23 02:59 | P.HP_ITS ---
History of Present Illness History of Present Illness Date Patient Seen: 05/23/21 Time Patient Seen: 02:00 Chief complaint: Severe abd pain, N/V found to have acute pancreati Narrative: Garett Desai is a 66-year-old male with no current medications who presented to the emergency department with worsening abdominal cramping and pain, bloating and vomiting. He is currently having dry heaves and was unable to tell me what color his vomit was earlier in the day. He states that he vomited about 6 times prior to coming into the emergency department and then 3 times since. He states he does drink wine about 2 glasses 3 times a week. Otherwise he denies taking any medications that might provoke the this. He denies fevers sweats or chills, shortness of breath, he has chronic frequent urination, denies diarrhea or constipation. When he received the last pain medication he said that his right hand got numb but that is now resolved. He also stated after receiving last medication he did hallucinate and that he never wanted to have a medication like that again. In the emergency department he presented with a markedly elevated lipase of of almost 52,000, CT of the abdomen and pelvis confirmed presence of acute pancreatitis with no evidence of necrosis he is afebrile, blood pressure 152/90, heart rate 59, oxygen saturation 92% on 4 L, he weighs 115 kilos with a BMI of 32.5. His CBC is unremarkable, did have a mildly elevated D-dimer, glucose 200, A1c is 5.7 indicating probable transient elevated glucose due to pancreatic insufficiency, his lactate is 3.8, AST 181, ALT 110, total creatinine kinase is 361, CK-MB is 3.53, troponin is negative, his triglycerides are 168, UA is negative for UTI and COVID-19 PCR is negative. Patient is admitted for pain control and further workup of acute pancreatitis. Patient History Medical History (Updated 05/23/21 @ 03:06 by CATHERINE Cabrera) Gout Surgical History (Updated 05/23/21 @ 03:08 by CATHERINE Cabrera) Anesthesia History of hydrocelectomy History of right knee surgery (~01/2009) Family & Social History Family History Father Hyperlipidemia Atherosclerosis Mother Diabetes mellitus Hyperlipidemia Brother COPD (chronic obstructive pulmonary disease) Brother Liver disease Social History: household members spouse Prior Living Arrangements House Safety & Behavioral: Feels Safe in Current Yes Environment Been Physically Hurt or No Threatened By a Person Suicidal Ideation Description None Suicide Plan Description No Plan Tobacco & Substance use: Smoking Status Never smoker alcohol intake frequency 0-2 drinks per day Substance Use Type does not use Meds Home Medications and Allergies Home Medications Medication Instructions Recorded Confirmed Type No Known Home Medications 01/05/19 01/05/19 History Allergies Allergy/AdvReac Type Severity Reaction Status Date / Time No Known Drug Allergies Allergy Verified 05/22/21 21:26 Review of Systems Review of Systems ROS: Yes All systems reviewed with the patient and are negative except as oth erwise documented Exam Vital Signs (past 8 hours): - 05/22/21 21:14 05/22/21 21:27 05/22/21 21:28 Temperature Pulse Rate 54 L 71 Respiratory Rate 24 Blood Pressure 120/67 Pulse Oximetry 95 85 L 88 L 05/22/21 21:31 05/22/21 21:34 05/22/21 22:00 Temperature 97.6 F Pulse Rate 52 L 72 Respiratory Rate 29 H 55 H Blood Pressure 147/88 H 157/92 H Pulse Oximetry 93 05/22/21 22:30 05/22/21 23:00 05/22/21 23:30 Temperature Pulse Rate 68 67 77 Respiratory Rate 19 43 H Blood Pressure 159/98 H Pulse Oximetry 94 93 90 L 05/23/21 00:00 05/23/21 00:30 05/23/21 01:00 Temperature Pulse Rate 69 74 72 Respiratory Rate 25 H 25 H 34 H Blood Pressure Pulse Oximetry 84 L 88 L 89 L 05/23/21 01:25 Temperature 96.4 F L Pulse Rate 59 L Respiratory Rate 17 Blood Pressure 152/90 H Pulse Oximetry 92 Oxygen Delivery Method Room Air Oxygen Flow Rate 4 Narrative Exam Narrative: Gen: Alert, oriented, obese 66 y.o. male, appears uncomfortable HEENT: normocephalic, atraumatic, conjunctiva clear, sclera non-icteric, oral mucosa pink and moist Neck: supple, full ROM, no JVD, trachea is midline Resp: Lungs CTA, non-labored breathing CV: RRR, no murmur or rubs Abd: Distended, soft, diffusely tender, normoactive BTs Skin: no lesions or rashes, dry and intact Neuro: Alert and oriented X 4 w/no focal deficits. Speech clear and coherent. Extremities: moves all 4 extremities, is ambulatory, negative Estefany?s sign Psyche: normal mood and affect. Objective Labs Result Diagrams: 05/22/21 21:20 05/22/21 21:20 Labs: Laboratory Results - last 24 hr 05/22/21 05/22/21 05/22/21 21:14 21:14 21:20 WBC 11.0 RBC 4.99 Hgb 15.2 Hct 44.9 MCV 89.9 MCH 30.4 MCHC 33.8 RDW 14.6 Plt Count 261 Neut % (Auto) 67.7 Lymph % (Auto) 21.4 L [place] % (Auto) 9.7 Eos % (Auto) 0.5 L Baso % (Auto) 0.7 Neut # (Auto) 7500 H Lymph # (Auto) 2400 [place] # (Auto) 1100 H Eos # (Auto) 100 Baso # (Auto) 100 D-Dimer Sodium Potassium Chloride Carbon Dioxide BUN Creatinine Estimated GFR BUN/Creatinine Ratio Glucose Hemoglobin A1c 5.7 Lactate Calcium Total Bilirubin AST ALT Alkaline Phosphatase Total Creatine Kinase CK-MB (CK-2) CK-MB (CK-2) Rel Index Troponin I Total Protein Albumin Globulin Albumin/Globulin Ratio Triglycerides 168 H Lipase Urine RBC Urine WBC Urine Bacteria Ur Culture Indicated? SARS-CoV-2 (PCR) 05/22/21 05/22/21 05/22/21 21:20 21:20 21:20 WBC RBC Hgb Hct MCV MCH MCHC RDW Plt Count Neut % (Auto) Lymph % (Auto) [place] % (Auto) Eos % (Auto) Baso % (Auto) Neut # (Auto) Lymph # (Auto) [place] # (Auto) Eos # (Auto) Baso # (Auto) D-Dimer 301 H Sodium 139 Potassium 3.4 Chloride 105 Carbon Dioxide 25 BUN 14 Creatinine 1.08 Estimated GFR > 60.0 BUN/Creatinine Ratio 13.0 Glucose 200 H Hemoglobin A1c Lactate 3.3 H Calcium 9.3 Total Bilirubin 1.2 AST 181 H ALT 110 H Alkaline Phosphatase 66 Total Creatine Kinase 361 H CK-MB (CK-2) 3.53 H CK-MB (CK-2) Rel Index 1.0 L Troponin I < 0.012 Total Protein 7.5 Albumin 4.3 Globulin 3.2 Albumin/Globulin Ratio 1.3 Triglycerides Lipase 32233 H Urine RBC Urine WBC Urine Bacteria Ur Culture Indicated? SARS-CoV-2 (PCR) 05/22/21 05/22/21 05/22/21 21:30 23:35 23:35 WBC RBC Hgb Hct MCV MCH MCHC RDW Plt Count Neut % (Auto) Lymph % (Auto) [place] % (Auto) Eos % (Auto) Baso % (Auto) Neut # (Auto) Lymph # (Auto) [place] # (Auto) Eos # (Auto) Baso # (Auto) D-Dimer Sodium Potassium Chloride Carbon Dioxide BUN Creatinine Estimated GFR BUN/Creatinine Ratio Glucose Hemoglobin A1c Lactate 3.8 H Calcium Total Bilirubin AST ALT Alkaline Phosphatase Total Creatine Kinase CK-MB (CK-2) CK-MB (CK-2) Rel Index Troponin I Total Protein Albumin Globulin Albumin/Globulin Ratio Triglycerides Lipase Urine RBC 1-5/hpf Urine WBC None seen Urine Bacteria None seen Ur Culture Indicated? Culture not indicate SARS-CoV-2 (PCR) Negative Assessment & Plan Assessment & Plan narrative: Vinh Desai is a 66-year-old male being admitted for further workup and management of an acute pancreatitis he is experienced for the 1st time. 1. Pancreatitis, acute, present on admission * Pain control was difficult in the emergency department, he was given IV Dilaudid then IV fentanyl and finally IV ketamine with poor effect * He will receive IV Dilaudid q.3 hours as needed * Normal saline at 175 mL/hour * NPO for now advance to clears in the morning as tolerated * If no improvement patient may require surgical consult and reimaging 2. Elevated liver enzymes, acute, present on admission * In April of 2017 he had normal liver enzymes and has not had a draw since then and today AST/ALT are 181 and 110 respectively * Have ordered an acute hepatitis panel however lab was unable to get very much blood out of him and an attempt will be made during day shift to do a redraw as it requires a larger volume of blood 3. Chronic alcohol consumption * Patient has been counseled about the need to likely quit alcohol altogether as continued consumption is likely to cause new pancreatitis exacerbations that will end him in the hospital VTE Prophylaxis: Wells risk score 0 Enoxaparin 40 mg subQ once daily Bilateral SCDs Patient is admitted to the inpatient service due to the severity of disease, risks of further disease progression and this stay is expected to exceed 2 mi dnights. FEN: IV fluids: NS at 175 ml/hour, diet: NPO, labs: CBC, C/BMP, liver enzymes, Mag, PT/INR Consultants None Dispo: Likely discharge to home Code status: Full Code as discussed with the patient who identifies spouse, Lashay as his surrogate and POA. [X] I have utilized all available immediate resources to obtain, update, or review of the patient's current medications COVID-19 COVID-19 status: Negative Result date/Date tested (Pos, Neg/Pending): 05/23/21 Time Spent With Patient Critical Care time: I spent a total of [] minutes of critical care time on this patient's care today; this time is exclusive of procedural time. Quality VTE Deep Vein Thrombosis/Pulmonary Embolism Present on Admission: No MIPS - Admit I confirm the patient?s Advance Care Plan is present, Code status is documented, Surrogate decision maker is in patient?s record [If Yes, STOP here]: Yes MIPS - DC The patient has current or prior documentation of left ventricular ejection fraction (LVEF) less than 40%, or moderate or severely depressed left ventricular systolic function.: No
[2021-05-23 03:29] LABS: Add Manual Diff / Slide Review NO; Basophils Absolute Auto 0 /uL (0-100); Eosinophils Absolute Auto 0 /uL (0-450); Hematocrit 44.2 % (41-53); Hemoglobin 14.8 g/dL (13.5-17.5); Lymphocytes Absolute Auto 400 /uL (1100-4500); Mean Corpuscular HGB Conc 33.6 % (30-36); Mean Corpuscular Hemoglobin 30.2 PG (26-34); Monocytes Absolute Auto 1000 /uL (0-900); Monocytes Percent Auto 5.4 % (3-14); Neutrophils Absolute Auto 16700 /uL (1500-7000); Neutrophils Percent Auto 92.6 % (50-75); Platelet Count 222 X10^3/uL (150-400); Red Blood Cell Count 4.91 X10^6/uL (4.5-5.9); Red Cell Distribution Width 14.9 % (11.6-14.8); White Blood Cell Count 18.1 X10^3/uL (4.5-11.0)
[2021-05-23 03:33] LABS: Alanine Aminotransferase 95 IU/L (<50); Albumin 4.2 g/dL (3.5-5.0); Albumin Globulin Ratio 1.4 (1.0-2.8); Alkaline Phosphatase 56 U/L (38-126); Aspartate Aminotransferase 126 IU/L (17-59); Bilirubin Total 0.6 mg/dL (0.2-1.3); Bilirubin Unconjugated 0.6 mg/dL (0.0-1.1); Blood Urea Nitrogen 13 mg/dL (9-20); Calcium 8.6 mg/dL (8.4-10.2); Carbon Dioxide 28 mmol/L (22-32); Chloride 106 mmol/L (98-107); Estimated Glomerular Filt Rate > 60.0 mL/min (>60); Glucose 149 mg/dL (80-110); HEMOLYSIS < 15 (0-50); Sodium 142 mmol/L (137-145); Total Protein 7.2 g/dL (6.3-8.2)
[2021-05-23 03:46] LABS: Lactate (Lactic Acid) 4.4 mmol/L (0.7-2.1)
[2021-05-23] MEDS: PIPERACILLIN/TAZO 3.375 GM in SODIUM CHLORIDE 0.9% 100 ML 25 ML IV ×3 (04:27→19:50)
[2021-05-23 05:15] LABS: Reflexed Lactate in 2 Hours Y
[2021-05-23 05:49] LABS: Lactate 2HR (Lactic Acid Rflx) 2.5 mmol/L (0.7-2.1)
--- NOTE | 2021-05-23 07:13 | DI.US.S_ITS ---
PROCEDURE: US ABDOMEN LIMITED INDICATIONS: PANCREATITIS TECHNIQUE: Real-time scanning was performed of the abdominal and retroperitoneal organs, with image documentation. COMPARISON: [facility], CT, CT ANGIO CHEST ABDOMEN PELVIS, 05/22/2021, 22:20. FINDINGS: Liver: Visualized portion of liver shows normal size and echotexture. CT finding of possible hepatic cysts are not visualized on this study. Gallbladder: There is no gallstone. No gallbladder wall thickening or pericholecystic fluid. No sonographic Callaway sign. Biliary ducts: Intrahepatic bile ducts are non-dilated. Extrahepatic bile duct caliber measures 5.4 mm. Normal is 6-7 mm or less in diameter, or 10 mm or less post-cholecystectomy. Pancreas: Pancreas is not visualized due to overlying bowel gas. IMPRESSION: 1. Normal appearing gallbladder. No biliary ductal dilatation. 2. Visualized portion of liver shows no gross abnormality although evaluation of left hepatic lobe is limited due to overlying bowel gas. 3. Pancreas is not visualized due to overlying bowel gas. Dictated by: Mendel Joshi M.D. on 05/23/2021 at 8:29 Approved by: Mendel Joshi M.D. on 05/23/2021 at 8:31
[2021-05-23] MEDS: ENOXAPARIN 40 MG/0.4 ML SYRINGE SUBCUT (08:39)
[2021-05-23] MEDS: SODIUM CHLORIDE 0.9% 1,000 ML 150 ML IV (08:39)
--- NOTE | 2021-05-23 10:22 | CM.DANOTE ---
DCP: Case received, EMR reviewed and met with patient. Introduced self and role. Was able to obtain information regarding patient's baseline activity level prior to hospitalization. DCP assessment completed with information currently available. Patient is a 66 year old male who admitted early this morning to the care of the hospitalist team. PCP: Dr. Smith. Payer: confirmed: Alba Tomlinson. Patient came to the hospital via private vehicle secondary to having severe abdominal pain, resulting in vomiting several times. Patient was noted to have increased lipase, and holds current diagnosis of Acute Pancreatitis. Patient does drink alcohol, about 2 glasses of wine 3 times a week. Met with patient in his room. He was laying in bed, alert and oriented. He resides here in [place] with his spouse, Lashay. He is independent at his baseline. He confirmed that he sees Dr. Smith for primary care, stated, he had only seen him once before the pandemic hit, and hasn't been to the doctors since then. P: DCP to continue to follow. Discussed patient in team rounds, and hospitalist anticipates that patient may be here for a few days before going home. Mariam Hernandez RN/Alternative Energy Technician Discharge Planning/Care Management Advanced directive, confirm from FAMILY Start: 05/23/21 01:45 Freq: Q24H Status: Complete Protocol: Document 05/23/21 01:45 AGW (Rec: 05/23/21 03:27 AGW [id number]) Advance Directive, confirm on record Time 02:00 Person contacted patient Copy received No Advanced directive available on record No CM Discharge Assessment Start: 05/23/21 10:20 Freq: Status: Active Protocol: Document 05/23/21 10:20 (Rec: 05/23/21 10:21 [id number]) Discharge Planning Assessment Assigned Seat Cover Maker Mariam Hernandez RN/Alternative Energy Technician Advance Directives? No Advance Directives on File No History Provided By Patient,Medical Record Prior Living Arrangements House Household Members spouse Type of transporation used prior to Drives own vehicle admit Independent with ADL's Yes Is patient alert and oriented? Yes Barriers to Discharge No Discharge Plan Home Transportation Arrangement Spouse Referrals Initiated None needed Whiteboard Updated in Patient Room with Yes name and ext. # of Seat Cover Maker Review Status In Process Next Review Type Continued Stay Review
[2021-05-23 12:03] LABS: Enterococcus species Not Detected (Not Detect); Listeria monocytogenes Not Detected (Not Detect); Staphylococcus species Not Detected (Not Detect)
[2021-05-23 12:04] LABS: Acinetobacter baumannii Not Detected (Not Detect); Candida albicans Not Detected (Not Detect); Candida glabrata Not Detected (Not Detect); Candida krusei Not Detected (Not Detect); Candida parapsilosis Not Detected (Not Detect); Candida tropicalis Not Detected (Not Detect); E. coli Not Detected (Not Detect); Enterobacter cloacae complex Not Detected (Not Detect); Enterobacteriaceae species Detected (Not Detect); Haemophilus influenzae Not Detected (Not Detect); KPC (carbapenem-resist gene) Not Detected (Not Detect); Neisseria meningitidis Not Detected (Not Detect); Proteus species Not Detected (Not Detect); Pseudomonas aeruginosa Not Detected (Not Detect); Serratia marcescens Not Detected (Not Detect); Streptococcus agalactiae (Gr B Not Detected (Not Detect); Streptococcus pneumonia Not Detected (Not Detect); Streptococcus pyogenes (Gr A) Not Detected (Not Detect); Streptococcus species Not Detected (Not Detect)
[2021-05-23] MEDS: ACETAMINOPHEN 325 MG TABLET 650 MG PO (16:33)
[2021-05-23] MEDS: SODIUM CHLORIDE 0.9% 1,000 ML 75 ML IV (16:33)
[2021-05-24 00:38] LABS: HBsAg Screen Negative (Negative); Hepatitis A Antibody IgM Negative (Negative); Hepatitis B Core Antibody IgM Negative (Negative); Hepatitis C Antibody <0.1 s/co ratio (0.0-0.9)
[2021-05-24] MEDS: HYDROMORPHONE 1 MG INJ IV (01:14)
[2021-05-24] MEDS: PIPERACILLIN/TAZO 3.375 GM in SODIUM CHLORIDE 0.9% 100 ML 25 ML IV ×3 (03:16→20:26)
[2021-05-24] MEDS: SODIUM CHLORIDE 0.9% 1,000 ML 75 ML IV ×2 (05:18→18:51)
[2021-05-24 06:16] LABS: Add Manual Diff / Slide Review NO; Basophils Absolute Auto 0 /uL (0-100); Basophils Percent Auto 0.3 % (0-2); Eosinophils Absolute Auto 100 /uL (0-450); Eosinophils Percent Auto 0.5 % (2-4); Hematocrit 43.3 % (41-53); Hemoglobin 14.3 g/dL (13.5-17.5); Lymphocytes Absolute Auto 800 /uL (1100-4500); Lymphocytes Percent Auto 6.7 % (25-40); Mean Corpuscular Hemoglobin 30.3 PG (26-34); Mean Corpuscular Volume 91.7 fL (80-100); Monocytes Absolute Auto 800 /uL (0-900); Monocytes Percent Auto 6.7 % (3-14); Neutrophils Absolute Auto 10900 /uL (1500-7000); Neutrophils Percent Auto 85.8 % (50-75); Platelet Count 176 X10^3/uL (150-400); Red Blood Cell Count 4.72 X10^6/uL (4.5-5.9); Red Cell Distribution Width 15.2 % (11.6-14.8); White Blood Cell Count 12.7 X10^3/uL (4.5-11.0)
[2021-05-24 06:30] VITALS: BP 154/96; PULSE 76; RESP 17; TEMP 37; O2SAT 93
[2021-05-24 06:31] LABS: Alanine Aminotransferase 64 IU/L (<50); Albumin 3.8 g/dL (3.5-5.0); Albumin Globulin Ratio 1.3 (1.0-2.8); Alkaline Phosphatase 46 U/L (38-126); Aspartate Aminotransferase 41 IU/L (17-59); BUN Creatinine Ratio 12.8 (6-22); Bilirubin Total 0.9 mg/dL (0.2-1.3); Bilirubin Unconjugated 0.9 mg/dL (0.0-1.1); Blood Urea Nitrogen 11 mg/dL (9-20); Calcium 8.2 mg/dL (8.4-10.2); Carbon Dioxide 29 mmol/L (22-32); Chloride 105 mmol/L (98-107); Estimated Glomerular Filt Rate > 60.0 mL/min (>60); Glucose 115 mg/dL (80-110); HEMOLYSIS < 15 (0-50); Potassium 3.9 mmol/L (3.4-5.1); Sodium 139 mmol/L (137-145); Total Protein 6.8 g/dL (6.3-8.2)
[2021-05-24] MEDS: ACETAMINOPHEN 325 MG TABLET 650 MG PO ×2 (07:52→15:30)
[2021-05-24] MEDS: ENOXAPARIN 40 MG/0.4 ML SYRINGE SUBCUT (07:53)
[2021-05-24 09:05] VITALS: O2SAT 93
[2021-05-24 10:23] VITALS: BP 164/99; PULSE 77; RESP 20; TEMP 37.3; O2SAT 91
--- NOTE | 2021-05-24 13:18 | P.PN_ITS ---
Subjective Subjective Date Patient Seen: 05/24/21 Time Patient Seen: 13:18 Interval history: This is a 66 year old male admitted with acute pancreatitis. He had a bit of pain this morning but was tolerating clears. He was not quite ready for a full diet and not feeling hungry but was agreeable to advanced to fulls. Exam Vital Signs (past 8 hours): - 05/24/21 06:30 05/24/21 09:05 05/24/21 10:23 Temperature 98.6 F 99.2 F Pulse Rate 76 77 Respiratory Rate 17 20 Blood Pressure 154/96 H 164/99 H Pulse Oximetry 93 93 91 Oxygen Delivery Method Nasal Cannula Oxygen Flow Rate 4 Narrative Exam Narrative: Gen: Alert, oriented, obese 66 y.o. male, appears uncomfortable HEENT: normocephalic, atraumatic, conjunctiva clear, sclera non-icteric, oral mucosa pink and moist Neck: supple, full ROM, no JVD, trachea is midline Resp: Lungs CTA, non-labored breathing CV: RRR, no murmur or rubs Abd:?minimal distension, soft, minimally tender epigastrium. Skin: no lesions or rashes, dry and intact Neuro: Alert and oriented X 4 w/no focal deficits. Speech clear and coherent. Extremities: no edema or joint effusions. Psyche: normal mood and affect. Objective Labs Result Diagrams: 05/24/21 05:58 05/24/21 05:58 Labs: Laboratory Results - last 24 hr 05/23/21 05/24/21 05/24/21 08:45 05:58 05:58 WBC 12.7 H RBC 4.72 Hgb 14.3 Hct 43.3 MCV 91.7 MCH 30.3 MCHC 33.0 RDW 15.2 H Plt Count 176 Neut % (Auto) 85.8 H Lymph % (Auto) 6.7 L [place] % (Auto) 6.7 Eos % (Auto) 0.5 L Baso % (Auto) 0.3 Neut # (Auto) 96866 H Lymph # (Auto) 800 L [place] # (Auto) 800 Eos # (Auto) 100 Baso # (Auto) 0 Sodium 139 Potassium 3.9 Chloride 105 Carbon Dioxide 29 BUN 11 Creatinine 0.86 Estimated GFR > 60.0 BUN/Creatinine Ratio 12.8 Glucose 115 H Calcium 8.2 L Total Bilirubin 0.9 Conjugated Bilirubin 0.0 Unconjugated Bilirubin 0.9 AST 41 ALT 64 H Alkaline Phosphatase 46 Total Protein 6.8 Albumin 3.8 Globulin 3.0 Albumin/Globulin Ratio 1.3 Hepatitis A IgM Ab Negative Hep Bs Antigen Negative Hep B Core IgM Ab Negative Hepatitis C Antibody <0.1 Hep C Ab Signal/Cutoff Comment [facility] Medical History (Updated 05/23/21 @ 03:06 by CATHERINE Cabrera) Gout Surgical History (Updated 05/23/21 @ 03:08 by CATHERINE Cabrera) Anesthesia History of hydrocelectomy History of right knee surgery (~01/2009) Family History Father Hyperlipidemia Atherosclerosis Mother Diabetes mellitus Hyperlipidemia Brother COPD (chronic obstructive pulmonary disease) Brother Liver disease Social History household members: spouse Smoking Status: Never smoker Assessment & Plan Assessment & Plan narrative: Vinh Desai is a 66-year-old male being admitted not with acute pancreatitis and Klebsiella pneumonia bacteremia. 1. Pancreatitis, acute, present on admission - advanced to FLD today. Lipase was >50,000 but now minimal pain. - advance diet as tolerated and continue pain control. - only source appears to be alcohol at this time. He states he only drinks wine on weekends. 2. Elevated liver enzymes, acute, present on admission - Now improving. Unclear etiology. RUQ US negative. 3. Chronic alcohol consumption - advised on cessation. He is agreeable to alcohol cessation. 4. Klebsiella pneumoniae bacteremia - continue zosyn pending sensitivities. Source could be from pneumonia or pancreas. Would recommend 10-14 days of total therapy, can narrow to oral after sensitivities return and if he is tolerating a diet at that time. 5. Elevated BP - likely due to pain, continue to monitor and may need to start antihypertensive. Consultants? None Dispo: Likely discharge to home, timing could be as soon as tomorrow. Code status: Full Code as discussed with the patient who identifies spouse, Lashay as his surrogate and POA. Time Spent With Patient Critical Care time: I spent a total of [] minutes of critical care time on this patient's care today; this time is exclusive of procedural time. Quality VTE Deep Vein Thrombosis/Pulmonary Embolism Present on Admission: No
[2021-05-24 18:00] VITALS: BP 158/94; PULSE 83; RESP 16; TEMP 36.9; O2SAT 94
[2021-05-24 20:19] VITALS: PULSE 77; RESP 16; O2SAT 92
[2021-05-24] MEDS: SODIUM CHLORIDE 0.9% FLUSH 10 ML IV (20:26)
[2021-05-24 20:45] VITALS: BP 162/100; PULSE 77; RESP 16; TEMP 36.9; O2SAT 92
[2021-05-24] MEDS: HYDROMORPHONE 2 MG TABLET PO (21:25)
[2021-05-25] VITALS (8 sets, daily range): BP systolic 153–168; BP diastolic 95–107; PULSE 73–77; RESP 16–18; TEMP 36.6–38.3; O2SAT 90–97
[2021-05-25] MEDS: ACETAMINOPHEN 325 MG TABLET 650 MG PO ×3 (00:46→23:42)
[2021-05-25] MEDS: PIPERACILLIN/TAZO 3.375 GM in SODIUM CHLORIDE 0.9% 100 ML 25 ML IV (04:34)
[2021-05-25] MEDS: HYDROMORPHONE 1 MG INJ IV ×3 (04:39→22:25)
[2021-05-25 06:32] LABS: Add Manual Diff / Slide Review NO; Basophils Absolute Auto 100 /uL (0-100); Basophils Percent Auto 0.7 % (0-2); Eosinophils Absolute Auto 200 /uL (0-450); Eosinophils Percent Auto 1.5 % (2-4); Hematocrit 40.7 % (41-53); Hemoglobin 13.7 g/dL (13.5-17.5); Lymphocytes Absolute Auto 1100 /uL (1100-4500); Lymphocytes Percent Auto 9.2 % (25-40); Mean Corpuscular HGB Conc 33.7 % (30-36); Mean Corpuscular Hemoglobin 30.5 PG (26-34); Mean Corpuscular Volume 90.4 fL (80-100); Monocytes Absolute Auto 1200 /uL (0-900); Monocytes Percent Auto 10.5 % (3-14); Neutrophils Absolute Auto 9300 /uL (1500-7000); Neutrophils Percent Auto 78.1 % (50-75); Platelet Count 196 X10^3/uL (150-400); Red Blood Cell Count 4.51 X10^6/uL (4.5-5.9); Red Cell Distribution Width 14.6 % (11.6-14.8); White Blood Cell Count 11.8 X10^3/uL (4.5-11.0)
[2021-05-25 06:37] LABS: Alanine Aminotransferase 46 IU/L (<50); Albumin 3.7 g/dL (3.5-5.0); Albumin Globulin Ratio 1.2 (1.0-2.8); Alkaline Phosphatase 52 U/L (38-126); Aspartate Aminotransferase 28 IU/L (17-59); BUN Creatinine Ratio 13.5 (6-22); Bilirubin Total 0.8 mg/dL (0.2-1.3); Bilirubin Unconjugated 0.8 mg/dL (0.0-1.1); Blood Urea Nitrogen 10 mg/dL (9-20); Calcium 8.2 mg/dL (8.4-10.2); Carbon Dioxide 29 mmol/L (22-32); Chloride 106 mmol/L (98-107); Estimated Glomerular Filt Rate > 60.0 mL/min (>60); Glucose 110 mg/dL (80-110); HEMOLYSIS < 15 (0-50); Potassium 3.6 mmol/L (3.4-5.1); Sodium 137 mmol/L (137-145); Total Protein 6.7 g/dL (6.3-8.2)
[2021-05-25] MEDS: ENOXAPARIN 40 MG/0.4 ML SYRINGE SUBCUT (09:32)
[2021-05-25] MEDS: AMOXICILLIN/CLAV 875/125 MG 1 TAB PO ×2 (09:32→20:46)
[2021-05-25] MEDS: SODIUM CHLORIDE 0.9% FLUSH 10 ML IV ×2 (09:33→20:47)
[2021-05-25] MEDS: SODIUM CHLORIDE 0.9% 1,000 ML 75 ML IV (09:41)
--- NOTE | 2021-05-25 10:33 | CM.DPC ---
DCP Cont: Per MD, was able to transition pt to oral meds today and will advance pt's diet from full liquids and pending his pain and tolerating advancing diet, likely can d/c home this afternoon vs tomorrow and no identified barriers to discharge. Plan: SW to follow closely for pt progress today to determine home on orals Rx today vs tomorrow pending diet. No SW needs at this time, please refer if indicated. AVE Fisher
--- NOTE | 2021-05-25 16:57 | PM.PN.1 ---
Subjective Subjective Date Patient Seen: 05/25/21 Time Patient Seen: 16:58 Interval history: This is a 66 year old male admitted with acute pancreatitis.?He was advanced to low fat diet for lunch but complained of bloating and gas, mild abdominal pain. No fevers, chills, does report lingering cough for a while before admission. Exam Vital Signs (past 8 hours): - 05/25/21 09:14 05/25/21 12:00 Temperature 97.9 F 98.5 F Pulse Rate 74 73 Respiratory Rate 18 17 Blood Pressure 153/102 H 160/102 H Pulse Oximetry 97 95 Oxygen Delivery Method Nasal Cannula Oxygen Flow Rate 0 Narrative Exam Narrative: Gen: Alert, oriented, obese 66 y.o. male, appears uncomfortable HEENT: normocephalic, atraumatic, conjunctiva clear, sclera non-icteric, oral mucosa pink and moist Neck: supple, full ROM, no JVD, trachea is midline Resp: Lungs CTA, non-labored breathing CV: RRR, no murmur or rubs Abd:?minimal distension, soft, non-tender today. Skin: no lesions or rashes, dry and intact Neuro: Alert and oriented X 4 w/no focal deficits. Speech clear and coherent. Extremities: no edema or joint effusions. Psyche: normal mood and affect. Objective Labs Result Diagrams: 05/25/21 05:58 05/25/21 05:58 Labs: Laboratory Results - last 24 hr 05/25/21 05/25/21 05:58 05:58 WBC 11.8 H RBC 4.51 Hgb 13.7 Hct 40.7 L MCV 90.4 MCH 30.5 MCHC 33.7 RDW 14.6 Plt Count 196 Neut % (Auto) 78.1 H Lymph % (Auto) 9.2 L [place] % (Auto) 10.5 Eos % (Auto) 1.5 L Baso % (Auto) 0.7 Neut # (Auto) 9300 H Lymph # (Auto) 1100 [place] # (Auto) 1200 H Eos # (Auto) 200 Baso # (Auto) 100 Sodium 137 Potassium 3.6 Chloride 106 Carbon Dioxide 29 BUN 10 Creatinine 0.74 Estimated GFR > 60.0 BUN/Creatinine Ratio 13.5 Glucose 110 Calcium 8.2 L Total Bilirubin 0.8 Conjugated Bilirubin 0.0 Unconjugated Bilirubin 0.8 AST 28 ALT 46 Alkaline Phosphatase 52 Total Protein 6.7 Albumin 3.7 Globulin 3.0 Albumin/Globulin Ratio 1.2 [facility] Medical History (Updated 05/23/21 @ 03:06 by CATHERINE Cabrera) Gout Surgical History (Updated 05/23/21 @ 03:08 by CATHERINE Cabrera) Anesthesia History of hydrocelectomy History of right knee surgery (~01/2009) Family History Father Hyperlipidemia Atherosclerosis Mother Diabetes mellitus Hyperlipidemia Brother COPD (chronic obstructive pulmonary disease) Brother Liver disease Social History household members: spouse Smoking Status: Never smoker Assessment & Plan Assessment & Plan narrative: Vinh Desai is a 66-year-old male being admitted not with acute pancreatitis and Klebsiella pneumonia bacteremia. 1. Pancreatitis, acute, present on admission, with possible bacterial infection. ?- advanced to low fat diet Lipase was >50,000 but now minimal pain. Developed some bloating and gas with lunch, will observe again overnight to see if worsening pain with additional meals prior to discharge as his inflammation was quite severe on admission and he has progressed rather quickly. ?- advance diet as tolerated and continue pain control. ?- only source appears to be alcohol at this time. He states he only drinks wine on weekends. RUQ US negative, did have a sister with pancreatitis but unknown if cause was ever found. Has never had an episode before. 2. Elevated liver enzymes, acute, present on admission ?- Now improving. Unclear etiology but may be alcohol. RUQ US negative. 3. Chronic alcohol consumption ?- advised on cessation. He is agreeable to alcohol cessation. 4. Klebsiella pneumoniae bacteremia ?- continued zosyn pending sensitivities, now changed to augmentin. Source could be from pneumonia or pancreas. Would recommend 10-14 days of total therapy for possible infected pancreatitis. 5. Elevated BP ?- likely due to pain, continue to monitor and may need to start antihypertensive. Consultants? None Dispo: Discharge to home, timing could be as soon as tomorrow. Code status: Full Code as discussed with the patient who identifies spouse, Lashay as his surrogate and POA. Time Spent With Patient Critical Care time: I spent a total of [] minutes of critical care time on this patient's care today; this time is exclusive of procedural time. Quality VTE Deep Vein Thrombosis/Pulmonary Embolism Present on Admission: No
[2021-05-26 00:30] VITALS: TEMP 36.8
[2021-05-26 05:58] VITALS: BP 147/99; PULSE 74; RESP 16; TEMP 36.3; O2SAT 92
--- NOTE | 2021-05-26 07:22 | P.DS_ITS ---
History of Present Illness History of Present Illness Chief complaint: Severe abd pain N/V found to have acute pancreatis Narrative: Per Beth Orlando: Garett Desai is a 66-year-old male with no current medications who presented to the emergency department with worsening abdominal cramping and pain, bloating and vomiting.? He is currently having dry heaves and was unable to tell me what color his vomit was earlier in the day.? He states that he vomited about 6 times prior to coming into the emergency department and then 3 times since.? He states he does drink wine about 2 glasses 3 times a week.? Otherwise he denies taking any medications that might provoke the this.? He denies fevers sweats or chills, shortness of breath, he has chronic frequent urination, denies diarrhea or constipation.? When he received the last pain medication he said that his right hand got numb but that is now resolved.? He also stated after receiving last medication he did hallucinate and that he never wanted to have a medication like that again. In the emergency department he presented with a markedly elevated lipase of of almost 52,000, CT of the abdomen and pelvis confirmed presence of acute pancreatitis with no evidence of necrosis he is afebrile, blood pressure 152/90, heart rate 59, oxygen saturation 92% on 4 L, he weighs 115 kilos with a BMI of 32.5.? His CBC is unremarkable, did have a mildly elevated D-dimer, glucose 200, A1c is 5.7 indicating probable transient elevated glucose due to pancreatic insufficiency, his lactate is 3.8, AST 181, ALT 110, total creatinine kinase is 361, CK-MB is 3.53, troponin is negative, his triglycerides are 168, UA is negative for UTI and COVID-19 PCR is negative.? Patient is admitted for pain control and further workup of acute pancreatitis. Discharge Providers Provider Date of admission: 05/23/21 00:55 Discharge Date: 05/26/21 Primary care physician: Karan Smith DO Consults: 05/23/21 01:09 Consult to General Surgery Routine Comment: Consulting Provider: Dai Herrera Reason for consultation: acute pancreatitis Has provider been notified: Yes 05/25/21 10:14 Consult to Dietitian, Adult Routine Comment: Reason For Exam: acute pancreatitis, low fat diet Discharge provider: Avtar Wen MD Summary Hospital Course Discharge Diagnosis: 1. Acute pancreatitis 2. Klebsiella bacteremia 3. Transaminitis 4. Chronic alcohol use Hospital Course: Mr. Desai was admitted with abdominal pain. He does have some alcohol use, but it is not excessive and is not clear if this is the cause of his pancreatitis. H is imaging showed no gallstones. He was treated with bowel rest and improved. He did have Klebsiella bacteremia, possibly from gut translocation during his acute illness. He improved with antibiotics and was discharged with oral antibiotics. He should follow up with his PCP in 1-2 weeks. Exam Vital Signs (past 8 hours): Oxygen Delivery Method Room Air Oxygen Flow Rate 0 Narrative Exam Narrative: Gen: no acute distress Resp: clear bilaterally CV: regular rate and rhythm Abd:?soft, non-tender Objective Labs Result Diagrams: 05/25/21 05:58 05/25/21 05:58 [facility] Medical History (Updated 05/23/21 @ 03:06 by CATHERINE Cabrera) Gout Surgical History (Updated 05/23/21 @ 03:08 by CATHERINE Cabrera) Anesthesia History of hydrocelectomy History of right knee surgery (~01/2009) Family History Father Hyperlipidemia Atherosclerosis Mother Diabetes mellitus Hyperlipidemia Brother COPD (chronic obstructive pulmonary disease) Brother Liver disease Social History household members: spouse Smoking Status: Never smoker Discharge Plan Discharge Plan Patient Disposition: Home Provider Discharge Comment: Mr. Desai came in with pancreatitis. He also had an infection. He should continue on antibiotics and avoid fatty foods for a few days to give the pancreas some rest. He should see his PCP within the next 1-2 weeks. Discharge orders & Medications Prescriptions: New hydromorphone 2 mg Tablet 2 mg PO Q4HR PRN (Reason: Pain, Severe (7-10)) Qty: 12 0RF amoxicillin-pot clavulanate 875-125 mg Tablet 1 tab PO BID Qty: 24 0RF Follow up/Referrals: Karan Smith DO [Primary Care Provider] - Diet/Activity/Treatments Diet: Low-fat Visit Report/Discharge Packet Instructions: DI for Heart Failure, DI for Prescription Opioid Use Discharge Data Primary Care Provider: Karan Smith Quality VTE Deep Vein Thrombosis/Pulmonary Embolism Present on Admission: No
[2021-05-26 08:25] VITALS: BP 174/99; PULSE 81; RESP 19; TEMP 36.7; O2SAT 95
--- NOTE | 2021-05-26 08:29 | PC.NURSE ---
Addendum entered by Nam Jimenez R.N. 05/26/21 12:17: Pt readied for discharge. IV d/c'd intact. Instructions given and Pt and family stated and signed understanding of instructions. Pt escorted to private car and care of his . Original Note: Pt alert and oriented. Offers no overt complaint. Watching TV. Anticipates d/c today. Doesn't like the bed.
[2021-05-26 08:48] VITALS: PULSE 74; RESP 14; O2SAT 93
[2021-05-26] MEDS: ENOXAPARIN 40 MG/0.4 ML SYRINGE SUBCUT (09:10)
[2021-05-26] MEDS: AMOXICILLIN/CLAV 875/125 MG 1 TAB PO (09:10)
[2021-05-26] MEDS: SODIUM CHLORIDE 0.9% FLUSH 10 ML IV (09:11)
[2021-05-26] MEDS: HYDROMORPHONE 1 MG INJ IV (10:44)
== END 2021-05-26 12:07 | disposition home or self-care (01) | DRG 439 ==
LOC: ED 05-23 00:56 → AC 05-23 00:56
PROVIDERS: Admitting Provider Nurse Practitioner Family; Emergency Provider Emergency Medicine; PCP Family Medicine; Referring Provider Emergency Medicine; Visit Provider Nurse Practitioner Family
DX: K85.90 Acute pancreatitis without necrosis or infection, unspecified (principal); R78.81 Bacteremia; B96.1 Klebsiella pneumoniae [K. pneumoniae] as the cause of diseases classified elsewhere; R74.01 Elevation of levels of liver transaminase levels; Z20.822 Contact with and (suspected) exposure to COVID-19; Z72.89 Other problems related to lifestyle
CPT/HCPCS: 36415; 71275; 74019; 74174; 76705; 80048; 80053; 80074; 80076; 81003; 81015; 82550; 82553; 82962; 83036; 83605; 83690; 84478; 84484; 85025; 85379; 87040; 87086; 87150; 87186; 87205; 87635; 93005; 94762; 96374; 96375; 96376; 99284; 99285; C9803; J1170; J1650; J1815; J2405; J2543; J3010; Q9967

== ENCOUNTER → 2021-06-12 07:53 | Outpatient (CLI) | payer OTHER, SELFPAY ==
[2021-05-23 01:05] VITALS: BMI 32.5
[2021-06-12 09:04] LABS: Add Manual Diff / Slide Review NO; Basophils Absolute Auto 100 /uL (0-100); Basophils Percent Auto 1.1 % (0-2); Eosinophils Absolute Auto 100 /uL (0-450); Eosinophils Percent Auto 2.3 % (2-4); Hematocrit 44.8 % (41-53); Hemoglobin 14.6 g/dL (13.5-17.5); Lymphocytes Absolute Auto 1700 /uL (1100-4500); Lymphocytes Percent Auto 32.8 % (25-40); Mean Corpuscular HGB Conc 32.5 % (30-36); Mean Corpuscular Hemoglobin 29.7 PG (26-34); Mean Corpuscular Volume 91.4 fL (80-100); Monocytes Absolute Auto 600 /uL (0-900); Monocytes Percent Auto 11.6 % (3-14); Neutrophils Absolute Auto 2700 /uL (1500-7000); Neutrophils Percent Auto 52.2 % (50-75); Platelet Count 403 X10^3/uL (150-400); Red Cell Distribution Width 14.2 % (11.6-14.8); White Blood Cell Count 5.1 X10^3/uL (4.5-11.0)
[2021-06-12 09:45] LABS: Alanine Aminotransferase 22 IU/L (<50); Albumin 4.3 g/dL (3.5-5.0); Albumin Globulin Ratio 1.3 (1.0-2.8); Alkaline Phosphatase 66 U/L (38-126); Aspartate Aminotransferase 26 IU/L (17-59); BUN Creatinine Ratio 13.9 (6-22); Bilirubin Total 0.5 mg/dL (0.2-1.3); Blood Urea Nitrogen 15 mg/dL (9-20); Calcium 9.4 mg/dL (8.4-10.2); Carbon Dioxide 25 mmol/L (22-32); Chloride 106 mmol/L (98-107); Estimated Glomerular Filt Rate > 60.0 mL/min (>60); Globulin 3.3 g/dL (1.7-4.1); Glucose 93 mg/dL (80-110); HEMOLYSIS < 15 (0-50); Potassium 4.7 mmol/L (3.4-5.1); Sodium 142 mmol/L (137-145); Total Protein 7.6 g/dL (6.3-8.2); Uric Acid 7.6 mg/dL (3.5-8.5)
== END ==
PROVIDERS: PCP Family Medicine; Referring Provider Family Medicine; Visit Provider Family Medicine
DX: K85.90 Acute pancreatitis without necrosis or infection, unspecified (principal); M10.9 Gout, unspecified; R74.8 Abnormal levels of other serum enzymes
CPT/HCPCS: 36415; 80053; 84550; 85025

== ENCOUNTER → 2021-07-11 09:37 | Outpatient (CLI) | payer OTHER, SELFPAY ==
[2021-05-23 01:05] VITALS: BMI 32.5
--- NOTE | 2021-07-11 10:35 | DI.CT.S_ITS ---
PROCEDURE: CT ABDOMEN W CON INDICATIONS: pancreatitis f/u TECHNIQUE: After the administration of oral and intravenous contrast, 5 mm thick sections acquired from the diaphragms to the iliac crests. 5 mm thick coronal and sagittal reformats were acquired. For radiation dose reduction, the following was used: automated exposure control, adjustment of mA and/or kV according to patient size. COMPARISON: [facility], CT, CT ANGIO CHEST ABDOMEN PELVIS, 05/22/2021, 22:20. FINDINGS: Image quality: Excellent. Lung bases: Lung bases are clear. Heart size is normal. Solid organs: Liver is normal in size and enhancement. Circumscribed low-density lesions are redemonstrated within the left hepatic lobe suggesting the presence of simple hepatic cysts. Gallbladder is unremarkable . Biliary system is non dilated. Spleen is normal in size and enhancement. No adrenal nodules. Kidneys are normal in size, without hydronephrosis. There is homogeneous enhancement of the pancreas. The extensive peripancreatic fluid visualized on the comparison CT dated 05/22/21 has nearly entirely resolved with only traits peripancreatic fat stranding remaining. No suspicious peripancreatic fluid collections. Peritoneum and bowel: Contrast enhanced bowel loops appear normal in caliber. There is a small gas No free fluid or air. Nodes and vessels: No retroperitoneal or mesenteric adenopathy by size criteria. Aorta and inferior vena cava are normal in size. Bones: No suspicious bony lesions. No vertebral body compression fractures. Miscellaneous: No ventral hernias. IMPRESSION: Near complete resolution of the peripancreatic inflammatory changes when compared with the study dated May 22, 2021. No discrete peripancreatic fluid collections. Dictated by: Yolanda Liang M.D. on 07/11/2021 at 11:40 Approved by: Yolanda Liang M.D. on 07/11/2021 at 11:46
[2021-07-11 10:55] LABS: Uric Acid 5.8 mg/dL (3.5-8.5)
== END ==
PROVIDERS: PCP Family Medicine; Referring Provider Family Medicine; Visit Provider Family Medicine
DX: K85.00 Idiopathic acute pancreatitis without necrosis or infection (principal); M1A.9XX0 Chronic gout, unspecified, without tophus (tophi)
CPT/HCPCS: 36415; 74160; 84550

== ENCOUNTER → 2024-05-21 14:55 | Outpatient (CLI) | payer MEDICARE, SELFPAY ==
[2024-05-14 16:16] VITALS: BMI 32.5
--- NOTE | 2024-05-21 14:58 | DI.RAD.S_ITS ---
PROCEDURE: XR KNEE RT 3V INDICATIONS: knee pain TECHNIQUE: 3 views of the knee were acquired. COMPARISON: None. FINDINGS: Bones: No fractures or dislocations. No suspicious bony lesions. Tricompartmental joint space narrowing with associated osteophytosis. Subchondral cystic change in the medial tibiofemoral compartment, with early bony deformity. Soft tissues: Small joint effusion. No suspicious soft tissue calcifications. IMPRESSION: Moderate to severe tricompartmental osteoarthritis. Kellgren-Uday Grade 2-3. Dictated by: Samson Russo M.D. on 05/21/2024 at 16:12 Approved by: Samson Russo M.D. on 05/21/2024 at 16:13
--- NOTE | 2024-05-21 14:58 | DI.RAD.S_ITS ---
PROCEDURE: XR KNEE LT 3V INDICATIONS: knee pain TECHNIQUE: 3 views of the knee were acquired. COMPARISON: None. FINDINGS: Bones: No fractures or dislocations. No suspicious bony lesions. Tricompartmental joint space narrowing with associated osteophytosis. Subchondral cystic change with early bony deformity of the medial tibial femoral compartment. Soft tissues: Small joint effusion. No suspicious soft tissue calcifications. IMPRESSION: Moderate to severe tricompartmental osteoarthritis. Kellgren-Uday Grade 2-3. Dictated by: Samson Russo M.D. on 05/21/2024 at 16:13 Approved by: Samson Rsuso M.D. on 05/21/2024 at 16:13
== END ==
PROVIDERS: PCP Family Medicine; Referring Provider Family Medicine; Visit Provider Family Medicine
DX: M17.0 Bilateral primary osteoarthritis of knee (principal); M25.461 Effusion, right knee; M25.462 Effusion, left knee; M25.561 Pain in right knee; M25.562 Pain in left knee
CPT/HCPCS: 73562